=== PATIENT | female | born 1965 | race Hispanic/Latino ===

== ENCOUNTER 2016-08-15 06:14 | Day surgery (SDC) | payer MEDICAID ==
[2016-08-04 11:50] VITALS: BMI 29.8
[2016-08-15 07:03] LABS: ADD MANUAL DIFF? NO
[2016-08-15 07:09] LABS: BASO # 0.02 K/mm3 (0.0-2.0); BASO % 0.2 % (0.0-3.0); EOS # 0.2 (0.0-0.7); EOS % 2.2 % (1.5-5.0); GRAN # 4.88 (1.4-6.5); GRAN % 60.5 % (50.0-68.0); LYMPH # 2.2 (1.2-3.4); LYMPH % 27.7 % (22.0-35.0); MEAN CELL VOLUME 90.3 fL (80.0-105.0); MEAN CORPUSCULAR HGB CONC 35.5 g/dl (31.0-37.0); MEAN PLATELET VOLUME 12.1 fl (7.0-11.0); MONO # 0.8 (0.1-0.6); MONO % 9.4 % (1.0-6.0); PLATELET COUNT 208 10^3/uL (120.0-450.0); RED CELL DISTRIBUTION WIDTH 13.8 % (11.5-14.5); WHITE BLOOD COUNT 8.1 10^3/ul (4.5-11.0)
[2016-08-15] MEDS ORDERED: Lidocaine 2% Inj (20ml) ONE (07:09)
[2016-08-15] MEDS ORDERED: Atropine 0.4 mg/ml Inj (1 mL) ONE (07:10)
[2016-08-15] MEDS ORDERED: Famotidine 20mg/50ml 20 MG/50 ML BAG IVPB ONE (07:11)
[2016-08-15] MEDS ORDERED: Nitroglycerin 50mg in D5W 50 MG/250 ML BOTTLE IV ONE (07:11)
[2016-08-15] MEDS ORDERED: Iohexol 350mgl/ml 50 ML ONE (07:11)
[2016-08-15 07:17] LABS: INR 1.06 (0.93-1.08)
[2016-08-15] MEDS ORDERED: DiphenhydrAMINE 50 mg/ml Inj ONE (07:18)
[2016-08-15 07:23] LABS: BLOOD UREA NITROGEN 15 mg/dL (7-21); CALCIUM 9.7 mg/dL (8.4-10.5); CARBON DIOXIDE 34 mmol/L (21-33); CHLORIDE 96 mmol/L (98-107); CHOLESTEROL 170 mg/dL (130-200); GFR AFRICAN-AMERICAN > 60; GLUCOSE,RANDOM 85 mg/dL (70-110); SODIUM 138 mmol/L (132-148)
[2016-08-15 07:29] LABS: POTASSIUM 2.4 mmol/L (3.6-5.0)
[2016-08-15] MEDS ORDERED: Potassium Chloride 20 mEq ER Tab PO ONE ×4 (07:36→15:59)
[2016-08-15] MEDS ORDERED: Midazolam 2 MG/2 ML VIAL ONE (07:53)
[2016-08-15 07:55] VITALS: O2SAT 97
[2016-08-15] MEDS ORDERED: Eptifibatide 20 mg/10mL Inj IVP ONE (08:15)
[2016-08-15] MEDS ORDERED: Phenylephrine 10 mg/ml Inj ONE (08:15)
[2016-08-15] MEDS ORDERED: Iohexol 350 MG/100 ML VIAL ONE (08:16)
--- NOTE | 2016-08-15 08:28 | HP ---
REFERRING PHYSICIAN: Dr. Corona. REASON FOR ADMISSION: Left heart catheterization, possible angioplasty, persistent exertional an nu. BRIEF CLINICAL HISTORY: This is a 51-year-old female with a past medical history significant for hyp ertension, nonobstructive coronary artery of 50% in 2012. Complained of a persistent heaviness in th e chest on exertion and feels chest pain. The patient active tobacco abuse. PAST MEDICAL HISTORY: Significant for hypertension, coronary artery disease, status post cardiac cat heterization in 2012, 50% RCA. SOCIAL HISTORY: Active tobacco abuse/ 1/2 pack a day. Denies any history of alcohol abuse. CURRENT MEDICATIONS: The patient is taking hydrochlorothiazide, ferrous sulfate, aspirin, oxycodone, amlodipine, , Lexapro and Lipitor. ALLERGIES: ACETAMINOPHEN DIPHENHYDRAMINE, IV CONTRAST, TAZOBACTAM AND ZOSYN PREVIOUS CARDIAC WORKUP FOLLOWS: The patient had a cardiac catheterization 03/12/2012 that reveal ed heavily calcified coronaries, significant bifurcation of LAD and circumflex. LAD free of si gnificant disease, very short left main. LAD shows some luminal irregularity but no flow obstructing stenosis. calcific issues noted of circumflex but no flow obstructing stenosis noted. Calcif ication again noted in proximal RCA of 50% stenosis with no flow obstructing stenosis noted. LV gram shows at that time, ejection fraction 55%, EDP was in the range of 16, the aortic pressure 120/80. LV pressure . Medical treatment recommended. The patient had recent stress test dated 06/16/19 17 that shows essentially ____ normal myocardial perfusion study, no reversible ischemia, ejection fr action 71%. Echocardiography 04/16/2011 showed [id number] mitral regurgitation, [id number] tri cuspid regurgitation, normal left ventricular function, ejection fraction 55%. REVIEW OF SYSTEMS: As per HPI. PHYSICAL EXAMINATION: VITAL SIGNS: Height of the patient is . Weight of the patient is 185 pounds, blood pressure 10 2/94, and heart rate 60. HEENT: PERRLA. Extraocular muscles intact. NECK: Supple. No carotid bruits. No thyromegaly. CHEST: Clear to auscultation. HEART: S1, S2 regular. ABDOMEN: Soft. EXTREMITIES: Clubbing and cyanosis negative. BLOOD WORKUP: Pending. IMPRESSION: Persistent dyspnea on exertion thought to be by referring physician a false abnormal str ess test and was felt to be unstable angina. The patient admitted for elective cardiac cath and poss ible angioplasty. Further recommendation after cardiac catheterization. Will load with 300 Plavix, aspirin, . I discussed with the patient, the patient will proceed for cardiac catheterization a nd follow up the result. Chloe Hicks MD cc:Chloe Corona MD [phone] TT: 08/12/2016 21:21:35 dn
[2016-08-15] MEDS ORDERED: Sodium Chloride 0.9% 1,000 ML IV SCH (09:00)
[2016-08-15 12:10] VITALS: RESP 20; TEMP 98.7
[2016-08-15] MEDS ORDERED: Bacitracin 500 Units/gm Oint Foilpak UD ONE (12:27)
[2016-08-15 13:04] LABS: ADD MANUAL DIFF? NO
[2016-08-15 13:13] LABS: BASO # 0.01 K/mm3 (0.0-2.0); BASO % 0.1 % (0.0-3.0); EOS % 0.1 % (1.5-5.0); GRAN % 88.4 % (50.0-68.0); HEMATOCRIT 42.7 % (36.0-48.0); LYMPH # 0.9 (1.2-3.4); LYMPH % 9.5 % (22.0-35.0); MEAN CELL VOLUME 90.5 fL (80.0-105.0); MEAN CORPUSCULAR HEMOGLOBIN 32.2 pg (25.0-35.0); MEAN CORPUSCULAR HGB CONC 35.6 g/dl (31.0-37.0); MEAN PLATELET VOLUME 12.3 fl (7.0-11.0); MONO # 0.2 (0.1-0.6); MONO % 1.9 % (1.0-6.0); PLATELET COUNT 191 10^3/uL (120.0-450.0); RED CELL DISTRIBUTION WIDTH 13.7 % (11.5-14.5); WHITE BLOOD COUNT 9.1 10^3/ul (4.5-11.0)
[2016-08-15 13:22] LABS: BLOOD UREA NITROGEN 13 mg/dL (7-21); CALCIUM 9.4 mg/dL (8.4-10.5); CARBON DIOXIDE 29 mmol/L (21-33); CHLORIDE 101 mmol/L (98-107); GFR AFRICAN-AMERICAN > 60; GLUCOSE,RANDOM 108 mg/dL (70-110); POTASSIUM 3.1 mmol/L (3.6-5.0); SODIUM 137 mmol/L (132-148)
--- NOTE | 2016-08-15 14:56 | CARD ---
APPROVED REPORT EKG Measurement Heart [id number] HI [id number] [id number] <Conclusion> Normal sinus rhythm Prolonged QT Abnormal ECG
[2016-08-15 15:41] VITALS: BP 139/82; PULSE 84
--- NOTE | 2016-08-15 18:59 | CARD ---
APPROVED REPORT Procedure(s) performed: Left Heart Catheterization PTCA with Stenting of R PDA HISTORY 71%. (EF Method: RADIONUCLIDE), previous diagnostic cath, tobacco history() : The patient is a current smoker , hypertension , dyslipidemia . INDICATION The indication(s) include : positive stress test, dyspnea. CASE TECHNIQUE The patient was brought electively to the Cardiac Catheterization Laboratory in a fasting state and was prepped and draped in a sterile manner. The left wrist was infiltrated with 2% Lidocaine subcutaneous anesthesia. A 6 Fr Glidesheath (Radial) sheath was inserted into the left radial artery without difficulty. Coronary angiography was performed using coronary diagnostic catheters. The left coronary system was accessed and visualized with a Diagnostic ,5 Fr JL 4 catheter. The right coronary system was accessed and visualized with a Diagnostic ,5 Fr JR 4 catheter. The left ventricle was accessed and visualized with a 5 Fr Pigtail 145 (Angled) catheter. Left ventricular/Aortic Valve gradient assessed on pullback. Left ventriculogram was performed in BRAMBILA projection. Closure device was deployed with a Fr TR Band (Regular) without any complications. The patient tolerated the procedure well and there were no complications associated with the procedure. Vessel Analysis The patient's coronary anatomy is right dominant. The left main coronary artery is a large size vessel with intimal irregularities and without significant stenosis. The left main bifurcates to the left anterior descending and circumflex. The left anterior descending artery is a medium size vessel with diffuse calcification noted throughout this vessel and without significant stenosis. The first diagonal branch is a small size vessel with diffuse calcification noted throughout this vessel and without significant stenosis. The circumflex artery is a large size vessel with diffuse calcification noted throughout this vessel and without significant stenosis. The first obtuse marginal branch is a medium size vessel with diffuse calcification noted throughout this vessel and without significant stenosis. The right coronary artery is a medium size vessel with diffuse calcification noted throughout this vessel and without significant stenosis. The right posterior descending artery is a medium size vessel with diffuse calcification noted throughout this vessel and with significant stenosis. There is a 90% stenosis in the proximal segment. Left Ventricle The left ventricle is normal in size with normal contractility. There was no cardiomyopathy. The left ventricular ejection fraction is estimated to be 65%. The left ventricular end diastolic pressure is 15 mmHg. PCI Technique Lesion Anticoagulation was achieved with Heparin. Percutaneous coronary intervention was performed on the right posterior descending artery. The lesion stenosis prior to intervention was 90% with HALIE 2 flow. A 6 Fr JR 3.5 Guide Catheter was used to engage the ostium. BALLOON DILATION A Balloon catheter 2.0 x 10 mm Sprinter RX was inserted and inflated up to 11.00atm for 13seconds. STENT DEPLOYMENT A drug-eluting stent 2.75 x 12 mm Resolute DELVIN was inserted and inflated up to 11.00atm for 13seconds. POST STENT DEPLOYMENT BALLOON DILATION A Balloon catheter 2.75 x 8 mm Trek RX NC was inserted and inflated up to 14.00atm for 18seconds. Final angiography reveals 0 % stenosis with HALIE 3 flow. Conclusion Single Vessel CAD involving R PDA Preserved LV Fx. EF-65%. EDP-15 mmof Hg. Successful PTCA with DELVIN Of R PDA done Recommendations Smoking Cessation Cardiac Rehabilitation ReferralDaily ASA with Plavix for at least one year Aggressive Medical TherapyCardiac Risk Reduction Program Weight Loss Reduction Program CC; Drs. Siegel / Chloe.
[2016-08-16] MEDS ORDERED: Potassium Chloride 20 mEq ER Tab PO SCH (10:00)
== END 2016-08-15 19:19 | disposition home or self-care (01) ==
LOC: CATH 06:14 → 2RSO 08:56 → CATH 19:19
PROVIDERS: ATTEND Internal Medicine Cardiovascular Disease
DX: I25.10 Atherosclerotic heart disease of native coronary artery without angina pectoris (principal); I10 Essential (primary) hypertension; R06.09 Other forms of dyspnea; F17.210 Nicotine dependence, cigarettes, uncomplicated
CPT/HCPCS: 36415; 80048; 80061; 85025; 85175; 85610; 85730; 86850; 86900; 93005; 93458; 99152; C1725 ×2; C1769 ×2; C1874; C1887 ×3; C9600; J1200; J1327; J1644 ×2; J2250; J2930; J3010; J3480; Q9967 ×2

== ENCOUNTER 2016-08-28 15:36 | Emergency (ER) | payer MEDICAID ==
[2016-08-28 16:03] VITALS: BMI 28.2
[2016-08-28 16:11] VITALS: TEMP 99.1; O2SAT 99
[2016-08-28 17:51] VITALS: BP 102/65; PULSE 67; RESP 18
--- NOTE | 2016-08-28 19:08 | US ---
PROCEDURE: Duplex arterial ultrasound of the left wrist HISTORY: Recent cardiac catheterization. Pain and pulsatile mass left wrist. Evaluate for pseudoaneurysm. PHYSICIAN(S): Konrad Yap MD. FINDINGS: The left radial artery is patent. No evidence of large pseudoaneurysm or dissection is seen. There is no evidence of an AV fistula. IMPRESSION: 1. No sonographic evidence for pseudoaneurysm or AV fistula involving the distal left radial artery.
--- NOTE | 2016-08-28 19:28 | ED PDOC ---
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 Patient stated she had a cardiac cath on x 13 days ago. Patient denies pain on this area , cellulitis, or trauma. Denies other complains. (Ayaan Edwards) Past Medical History - Provider Review Nursing Documentation Reviewed: Yes - Past History Past History: Non-Contributing - Infectious Disease Hx of Infectious Diseases: None - Cardiac Hx Hypertension: Yes Hx Pacemaker: No - Pulmonary Hx Respiratory Disorders: No - Neurological Hx Paralysis: No - HEENT Hx HEENT Disorder: No - Renal Hx Renal Disorder: No Hx Kidney Stones: Yes (blasted and stents) - Endocrine/Metabolic Hx Endocrine Disorders: No - Hematological/Oncological Hx Blood Disorders: No Hx Blood Transfusions: No Hx Blood Transfusion Reaction: No - Integumentary Hx Dermatological Disorder: No - Musculoskeletal/Rheumatological Hx Musculoskeletal Disorders: Yes Hx Back Pain: Yes - Gastrointestinal Hx Gastroesophageal Reflux: Yes - Genitourinary/Gynecological Hx Genitourinary Disorders: No - Psychiatric Hx Psychophysiologic Disorder: No Hx Emotional Abuse: No Hx Physical Abuse: No Hx Substance Use: No - Surgical History Hx Appendectomy: Yes (1991) Hx Cardiac Catheterization: Yes Hx Cholecystectomy: Yes (2009) Hx Coronary Stent: Yes ([id number]) Hx Gastric Bypass Surgery: Yes (07/2003) Hx Hysterectomy: Yes Hx Tubal Ligation: Yes Other/Comment: laminectomy/microdiscectomy lower spine05/15. torn right meniscus 05/15. left hand carpal [id number] - Anesthesia Hx Anesthesia: Yes Hx Anesthesia Reactions: No Hx Malignant Hyperthermia: No - Suicidal Assessment Feels Threatened In Home Enviroment: No Family/Social History - Physician Review Nursing Documentation Reviewed: Yes Family/Social History: No Known Family HX Smoking Status: Light Smoker < 10 Cigarettes Daily Hx Alcohol Use: No Hx Substance Use: No Hx Substance Use Treatment: No Allergies/Home Meds Allergies/Adverse Reactions: Allergies acetaminophen [From Tylenol Severe Allergy] Allergy (Severe, Verified 08/04/16 11:50) RASH piperacillin sodium [From Zosyn] Allergy (Severe, Verified 08/04/16 11:50) RASH tazobactam sodium [From Zosyn] Allergy (Severe, Verified 08/04/16 11:50) RASH Iodinated Contrast Media - Oral and Allergy (Verified 08/28/16 16:04) ANAPHYLAXIS IV CONTRAST Allergy (Severe, Uncoded 11/14/14 19:59) ANAPHYLAXIS Home Medications: Home Meds Medication Instructions Recorded Confirmed Pantoprazole Sodium [Protonix IV] 40 mg PO DAILY 02/12/15 08/28/16 Aspirin [Ecotrin] 81 mg PO DAILY 03/13/16 08/28/16 Atorvastatin [Lipitor] 10 mg PO DIN 03/13/16 08/28/16 Escitalopram [Lexapro] 10 mg PO DAILY 03/13/16 08/28/16 Ursodiol [Actigall] 300 mg PO DAILY 03/13/16 08/28/16 amLODIPine [Norvasc] 10 mg PO DAILY 03/13/16 08/28/16 oxyCODONE [oxyCODONE Immediate 15 mg PO PRN PRN 03/13/16 08/28/16 Release Tab] Ferrous Sulfate [Iron] 325 mg PO DAILY 08/04/16 08/28/16 hydroCHLOROthiazide [Hydrodiuril] 25 mg PO DAILY 08/04/16 08/28/16 Clopidogrel [Plavix] 75 mg PO DAILY 08/15/16 08/28/16 Cholecalciferol (Vitamin D3) 1,000 units PO DAILY 08/28/16 08/28/16 [Vitamin D3] Cyanocobalamin (Vitamin B-12) 1 tab PO DAILY 08/28/16 08/28/16 [Vitamin B-12] Desipramine HCl [Norpramin] 10 mg PO HS 08/28/16 08/28/16 Hyoscyamine [Levsin] 0.125 mg PO DAILY PRN 08/28/16 08/28/16 Potassium Chloride [K-Dur 20 mEq 20 meq PO 08/28/16 ER Tab] tiZANidine [Zanaflex] 2 mg PO BID 08/28/16 08/28/16 Review of Systems - Review of Systems Constitutional: Normal. absent: Fatigue, Weight Change, Fevers Eyes: Normal ENT: Normal Respiratory: Normal. absent: SOB, Cough, Sputum, Wheezing Cardiovascular: Normal Gastrointestinal: Normal. absent: Abdominal Pain, Nausea, Vomiting Genitourinary Female: Normal Musculoskeletal: Other (See HPI) Skin: Normal Neurological: Normal Endocrine: Normal Hemo/Lymphatic: Normal Psychiatric: Normal Physical Exam Temperature: Afebrile Blood Pressure: Normal Pulse: Regular Respiratory Rate: Normal Appearance: Positive for: Well-Appearing, Non-Toxic, Comfortable Pain Distress: None Mental Status: Positive for: Alert and Oriented X 3 - Systems Exam Head: Present: Atraumatic, Normocephalic Pupils: Present: PERRL Extroacular Muscles: Present: EOMI Conjunctiva: Present: Normal Mouth: Present: Moist Mucous Membranes Neck: Present: Normal Range of Motion Respiratory/Chest: Present: Clear to Auscultation, Good Air Exchange. No: Respiratory Distress, Accessory Muscle Use Cardiovascular: Present: Regular Rate and Rhythm, Normal S1, S2. No: Murmurs Back: Present: Normal Inspection Upper Extremity: Present: Normal ROM, NORMAL PULSES, Neurovascularly Intact, Capillary Refill < 2s, Other (Small round swelling, approx. 5 mm, over the area of puncture wound. No pulsating, no erythema, no abscess. no tenderness). No : Cyanosis, Edema, Tenderness, Swelling, Erythema, Deformity Lower Extremity: Present: Normal Inspection, NORMAL PULSES, Normal ROM, Neurovascularly Intact, Capillary Refill < 2 s. No: Edema Neurological: Present: GCS=15, CN II-XII Intact, Speech Normal Skin: Present: Warm, Dry, Normal Color. No: Rashes Psychiatric: Present: Alert, Oriented x 3 Vital Signs Temp Pulse Resp BP Pulse Ox 08/28/16 17:10 67 18 102/65 99 08/28/16 16:10 99.1 F 69 14 100/63 99 Medical Decision Making Re-evaluation Time: 19:43 Reassessment Condition: Re-examined, Improved ED Course and Treatment: I was available for consultation during PA evaluation. The chart reviewed by me , and I agree with disposition. The documented history was done by the physician field cane scaler helper. The documented physical exam was done by the physician field cane scaler helper. The documented procedures were done by the physician field cane scaler helper. (Uday Collins) 08/28/16 19:34 Patient is resting comfortably, and is in no acute distress. Patient was instructed to follow up with *physician/clinic* in 1-2 days for further evaluation. 08/28/16 19:43 I spoke with Ara Newspaper Stuffer regarding negative arterial ultrasound. He said to call office for appointment tomorrow. (Ayaan Edwards) - RAD Interpretation Narrative RAD Interpretations (Text): 08/28/16 19:28 Accession No. : [id number] Patient Name / ID : ANEUDY WING / [id number] Exam Date : 08/28/2016 17:47:12 ( Approved ) Study Comment : Sex / Age : F / 51Y Creator : Konrad Bryant MD Dictator : Konrad Bryant MD Photostat Operator Helper : Order Caller : Konrad Bryant MD Approver2 : Report Date : 08/28/2016 19:06:42 My Comment : PROCEDURE: Duplex arterial ultrasound of the left wrist HISTORY: Recent cardiac catheterization. Pain and pulsatile mass left wrist. Evaluate for pseudoaneurysm. PHYSICIAN(S): Konrad Yap MD. FINDINGS: The left radial artery is patent. No evidence of large pseudoaneurysm or dissection is seen. There is no evidence of an AV fistula. IMPRESSION: 1. No sonographic evidence for pseudoaneurysm or AV fistula involving the distal left radial artery. (Ayaan Edwards) Radiology Orders: 08/28/16 16:41 DUPLEX UPPER EXTRM ARTR LEFT [US] Stat Disposition/Present on Arrival - Present on Arrival Any Indicators Present on Arrival: No History of DVT/PE: No History of Uncontrolled Diabetes: No Urinary Catheter: No History of Decub. Ulcer: No History Surgical Site Infection Following: None - Disposition Have Diagnosis and Disposition been Completed?: Yes Disposition Time: 19:45 Patient Plan: Discharge - Disposition Diagnosis: Encounter for wound re-check Disposition: HOME/ ROUTINE Condition: GOOD Discharge Instructions (ExitCare): Heart Catheterization (GEN) Additional Instructions: Call Dr. Hicks doctor office for follow up visit in 1-2 days. return to emergency if symptoms worsen or if puncture wound becomes painful, redness or discharge, or bleeding. Referrals: Shelly Hall DO [Primary Care Provider] - Follow up with primary Chloe Hicks MD [Staff Provider] - Follow up with primary Forms: WORK NOTE
== END 2016-08-28 20:09 | disposition home or self-care (01) ==
LOC: ED 15:36
DX: Z51.89 Encounter for other specified aftercare (principal); I10 Essential (primary) hypertension; F17.210 Nicotine dependence, cigarettes, uncomplicated

== ENCOUNTER 2016-10-12 19:47 | Emergency (ER) | payer MEDICAID ==
[2016-10-12 19:59] VITALS: TEMP 98.3; BMI 29.0
--- NOTE | 2016-10-12 20:32 | ED PDOC ---
Arrival/HPI - General Chief Complaint: Chest Pain Time Seen by Provider: 10/12/16 19:52 Historian: Patient - History of Present Illness Narrative History of Present Illness (Text): 10/12/16 20:10 A 51 year old female whose PMHx includes HTN and CAD, presents to the emergency department with epigastric pain and lateral flank pain b/L. The patient states that the pain feels similar to pains prior to her stent placement. The patient denies nausea, vomiting, diarrhea, vomiting, headache, chills, fevers, or any other complaint. Time/Duration: Prior to Arrival Symptom Onset: Sudden Symptom Course: Unchanged Activities at Onset: Rest, Light Context: Home Past Medical History - Provider Review Nursing Documentation Reviewed: Yes - Past History Past History: Non-Contributing - Infectious Disease Hx of Infectious Diseases: None - Cardiac Hx Cardiac Disorders: Yes Hx Hypertension: Yes Hx Pacemaker: No Other/Comment: stent - Pulmonary Hx Respiratory Disorders: No - Neurological Hx Paralysis: No - HEENT Hx HEENT Disorder: No - Renal Hx Renal Disorder: Yes Hx Kidney Stones: Yes (blasted and stents) - Endocrine/Metabolic Hx Endocrine Disorders: No - Hematological/Oncological Hx Blood Disorders: Yes Hx Anemia: Yes Hx Blood Transfusions: No Hx Blood Transfusion Reaction: No - Integumentary Hx Dermatological Disorder: No - Musculoskeletal/Rheumatological Hx Musculoskeletal Disorders: Yes Hx Back Pain: Yes - Gastrointestinal Hx Gastrointestinal Disorders: Yes Hx Gastroesophageal Reflux: Yes - Genitourinary/Gynecological Hx Genitourinary Disorders: Yes Other/Comment: kidney stones - Psychiatric Hx Psychophysiologic Disorder: No Hx Emotional Abuse: No Hx Physical Abuse: No Hx Substance Use: No - Surgical History Hx Appendectomy: Yes (1991) Hx Cardiac Catheterization: Yes Hx Cholecystectomy: Yes (2009) Hx Coronary Stent: Yes ([id number]) Hx Gastric Bypass Surgery: Yes (07/2003) Hx Hysterectomy: Yes Hx Tubal Ligation: Yes Other/Comment: laminectomy/microdiscectomy lower spine05/15. torn right meniscus 05/15. left hand carpal [id number] - Anesthesia Hx Anesthesia: Yes Hx Anesthesia Reactions: No Hx Malignant Hyperthermia: No - Suicidal Assessment Feels Threatened In Home Enviroment: No Family/Social History - Physician Review Nursing Documentation Reviewed: Yes Family/Social History: No Known Family HX Smoking Status: Light Smoker < 10 Cigarettes Daily Hx Alcohol Use: No Hx Substance Use: No Hx Substance Use Treatment: No Allergies/Home Meds Allergies/Adverse Reactions: Allergies acetaminophen [From Tylenol Severe Allergy] Allergy (Severe, Verified 10/12/16 20:01) RASH piperacillin sodium [From Zosyn] Allergy (Severe, Verified 10/12/16 20:01) RASH tazobactam sodium [From Zosyn] Allergy (Severe, Verified 10/12/16 20:01) RASH Iodinated Contrast- Oral and IV Dye Allergy (Verified 10/12/16 20:01) ANAPHYLAXIS Sulfa (Sulfonamide Antibiotics) Allergy (Verified 10/12/16 20:01) ANGIOEDEMA IV CONTRAST Allergy (Severe, Uncoded 10/12/16 20:01) ANAPHYLAXIS Home Medications: Home Meds Medication Instructions Recorded Confirmed Pantoprazole Sodium [Protonix IV] 40 mg PO DAILY 02/12/15 10/12/16 Aspirin [Ecotrin] 81 mg PO DAILY 03/13/16 10/12/16 Atorvastatin [Lipitor] 10 mg PO DIN 03/13/16 10/12/16 Escitalopram [Lexapro] 10 mg PO DAILY 03/13/16 10/12/16 Ursodiol [Actigall] 300 mg PO DAILY 03/13/16 10/12/16 oxyCODONE [oxyCODONE Immediate 15 mg PO PRN PRN 03/13/16 10/12/16 Release Tab] Ferrous Sulfate [Iron] 325 mg PO DAILY 08/04/16 10/12/16 hydroCHLOROthiazide [Hydrodiuril] 25 mg PO DAILY 08/04/16 10/12/16 Clopidogrel [Plavix] 75 mg PO DAILY 08/15/16 10/12/16 Cholecalciferol (Vitamin D3) 1,000 units PO DAILY 08/28/16 10/12/16 [Vitamin D3] Cyanocobalamin (Vitamin B-12) 1 tab PO DAILY 08/28/16 10/12/16 [Vitamin B-12] Desipramine HCl [Norpramin] 10 mg PO HS 08/28/16 10/12/16 Hyoscyamine [Levsin] 0.125 mg PO DAILY PRN 08/28/16 10/12/16 Potassium Chloride [K-Dur 20 mEq 20 meq PO DAILY 08/28/16 10/12/16 ER Tab] tiZANidine [Zanaflex] 2 mg PO BID 08/28/16 10/12/16 DULoxetine [Cymbalta] 30 mg PO DAILY 10/12/16 10/12/16 Lubiprostone [Amitiza] 24 mcg PO TID 10/12/16 10/12/16 amLODIPine [Norvasc] 10 mg PO DAILY 10/12/16 10/12/16 Review of Systems - Physician Review All systems were reviewed & negative as marked: Yes - Review of Systems Constitutional: Normal. absent: Fevers, Night Sweats Eyes: Normal ENT: Normal Respiratory: Normal Cardiovascular: Chest Pain Gastrointestinal: Abdominal Pain, Constipation. absent: Diarrhea, Nausea, Vomiting Genitourinary Female: Normal Musculoskeletal: Back Pain (flank pain) Skin: Normal Neurological: absent: Headache, Dizziness Endocrine: Normal Hemo/Lymphatic: Normal Psychiatric: Normal Physical Exam Vital Signs Reviewed: Yes Vital Signs Temp Pulse Resp BP Pulse Ox 10/12/16 22:04 62 20 128/73 98 10/12/16 19:59 98.3 F 74 19 136/70 98 Temperature: Afebrile Blood Pressure: Normal Pulse: Regular Respiratory Rate: Normal Appearance: Positive for: Well-Appearing, Non-Toxic, Comfortable Pain Distress: None Mental Status: Positive for: Alert and Oriented X 3 - Systems Exam Head: Present: Atraumatic, Normocephalic Pupils: Present: PERRL Conjunctiva: Present: Normal Mouth: Present: Moist Mucous Membranes Pharnyx: Present: Normal. No: ERYTHEMA, EXUDATE, Uvular Deviation Neck: Present: Normal Range of Motion Respiratory/Chest: Present: Clear to Auscultation, Good Air Exchange. No: Respiratory Distress, Accessory Muscle Use Cardiovascular: Present: Regular Rate and Rhythm, Normal S1, S2. No: Murmurs Abdomen: Present: Normal Bowel Sounds. No: Tenderness, Distention, Peritoneal Signs Back: Present: Normal Inspection Upper Extremity: Present: Normal Inspection. No: Cyanosis, Edema Lower Extremity: Present: Normal Inspection. No: Edema Neurological: Present: GCS=15, CN II-XII Intact, Speech Normal Skin: Present: Warm, Dry, Normal Color. No: Rashes Psychiatric: Present: Alert, Oriented x 3, Normal Insight, Normal Concentration Medical Decision Making ED Course and Treatment: 10/12/16 20:18 Impression: A 51 year old female presents with chest pain and abdominal pain. Differential: ACS vs pancreatitis vs gastritis/GERD vs dissection vs UTI Plan: -- CT Abdomen and Pelvis -- Labs -- Chest X-ray -- Pepcid -- Urinalysis -- Reassess and disposition Progress Notes: 10/12/16 22:49 Reviewed radiology, CT Abdomen and Pelvis shows: Dictated and Authenticated by: Donita Joseph MD Cholecystectomy clips are present. There is intrahepatic duct dilation and common bile ducts dilation likely secondary to cholecystectomy. The spleen and pancreas appear grossly normal on this non-contrast study. There is a 1.8 cm round partially calcified lesion in the lower pole of the right kidney for which followup is recommended. There are several smaller calcifications just inferiorly. Cortical thinning is present in the lower pole of the right kidney. There is asymmetry of the kidneys being more prominent on the left. There is slight fullness of the left renal collecting system without perinephric stranding or obstructing calculi which may be partially due to compensatory hypertrophy Evidence of gastric surgery. Minimal grade 1 spondylolisthesis L4-5. No aortic aneurysm. IMPRESSION: No acute findings. Nonacute findings as above. 10/12/16 23:38 Patient with noted history. EKG is normal; Blood work is unremarkable with negative CE. Urine shows UTI. Given recent stent, patient needs observation on tele for further evaluation and treatment. Also since she is unable to get IV dye, unable to obtain CTA to r/o dissection. Case discussed with Dr. Hicks - plan to place on observation on tele. CT a/p as above with urine showing UTI - possible pyelo - will also need iv antibiotics. Patient however is refusing to stay in the hospital and says she must leave - she understands the risk of leaving, including heart attack, other undiagnosed pathology, sepsis, or - she is leaving against medical advice and says she will follow up with Dr. Hicks and Rafael. She signed the ama sheet. - Lab Interpretations Lab Results: 10/12/16 20:27 10/12/16 20:40 Lab Results 10/12/16 22:02: Urine Color Yellow, Urine Appearance Sl cloudy, Urine pH 6.0, Ur Specific [place] 1.010, Urine Protein Negative, Urine Glucose (UA) Negative, Urine Ketones Negative, Urine Blood Trace-intact H, Urine Nitrate Negative, Urine Bilirubin Negative, Urine Urobilinogen 1.0 H, Ur Leukocyte Esterase Small H, Urine RBC 0 - 2, Urine WBC 5 - 10, Ur Epithelial Cells 6 - 8, Urine Bacteria Many 10/12/16 20:40: Sodium 139, Potassium 3.8, Chloride 101, Carbon Dioxide 29, Anion Gap 13, BUN 11, Creatinine 0.6, Est GFR ( Amer) > 60, Est GFR (Non- Af Amer) > 60, Random Glucose 78, Calcium 9.5, Magnesium 1.8, Total Bilirubin 0.9, Direct Bilirubin 0.6 H, AST 91 H, ALT 58 H, Alkaline Phosphatase 121, Lactate Dehydrogenase 567, Total Creatine Kinase 55, Troponin I < 0.01, Total Protein 7.2, Albumin 3.9, Globulin 3.3, Albumin/Globulin Ratio 1.2, Lipase 146 10/12/16 20:27: PT 10.7, INR 0.99, APTT 23.1 L 10/12/16 20:27: WBC 9.1, RBC 4.48, Hgb 14.4, Hct 41.5, MCV 92.6, MCH 32.1, MCHC 34.7, RDW 14.3, Plt Count 261, MPV 11.4 H, Gran % 68.0, Lymph % (Auto) 24.3, [place] % (Auto) 6.8 H, Eos % (Auto) 0.8 L, Baso % (Auto) 0.1, Gran # 6.17, Lymph # 2.2, [place] # 0.6, Eos # 0.1, Baso # 0.01 I have reviewed the lab results: Yes - RAD Interpretation Radiology Orders: 10/12/16 20:17 CHEST PORTABLE [RAD] Stat 10/12/16 21:34 ABD & PELVIS W/O PO OR IV CONT [CT] Stat [employer] Vendor: Radiologist - EKG Interpretation EKG Interpretation (Text): 10/12/16 23:43 NSR @ 69; no ST/T changes; normal intervals; normal axis. - Medication Orders Current Medication Orders: Discontinued Medications Aspirin (Aspirin Chewable) 162 mg PO STAT STA Stop: 10/12/16 22:09 Last Admin: 10/12/16 22:38 Dose: 162 mg Famotidine (Pepcid) 20 mg IVP STAT STA Stop: 10/12/16 20:19 Last Admin: 10/12/16 21:20 Dose: 20 mg Iohexol (Omnipaque 350 150 Ml) Confirm Administered Dose 150 ml .ROUTE .STK-MED ONE Stop: 10/12/16 21:24 - Scribe Statement The provider has reviewed the documentation as recorded by the Scribe Emmanuelle Kumar Provider Scribe Attestation: All medical record entries made by the Scribe were at my direction and personally dictated by me. I have reviewed the chart and agree that the record accurately reflects my personal performance of the history, physical exam, medical decision making, and the department course for this patient. I have also personally directed, reviewed, and agree with the discharge instructions and disposition. Disposition/Present on Arrival - Present on Arrival Any Indicators Present on Arrival: No History of DVT/PE: No History of Uncontrolled Diabetes: No Urinary Catheter: No History of Decub. Ulcer: No History Surgical Site Infection Following: None - Disposition Have Diagnosis and Disposition been Completed?: Yes Diagnosis: Chest pain, Abdominal pain, Back pain Disposition: AGAINST MEDICAL ADVICE Disposition Time: 23:30 Patient Plan: Other (AGAINST MEDICAL ADVICE) Patient Problems: Current Active Problems Problem Status Onset Abdominal pain Acute Back pain Acute Chest pain Acute Condition: GOOD Discharge Instructions (ExitCare): Chest Pain (ED) Additional Instructions: You are leaving the hospital against medical advice and may return at any time. If you choose not to do so, then follow up with Dr. Hicks and your primary care doctor. Take the antibiotic as prescribed. Drink plenty of fluids. Prescriptions: Nitrofurantoin Macrocrystals [Macrobid] 100 mg PO BID #14 cap Referrals: Shelly Hall DO [Primary Care Provider] - Follow up with primary Chloe Hicks MD [Staff Provider] - Follow up with primary Forms: [employer]™ Audio (Armenian)
[2016-10-12 20:35] LABS: BASO # 0.01 K/mm3 (0.0-2.0); BASO % 0.1 % (0.0-3.0); EOS # 0.1 (0.0-0.7); EOS % 0.8 % (1.5-5.0); GRAN # 6.17 (1.4-6.5); HEMOGLOBIN 14.4 g/dL (12.0-16.0); LYMPH # 2.2 (1.2-3.4); LYMPH % 24.3 % (22.0-35.0); MEAN CELL VOLUME 92.6 fl (80.0-105.0); MEAN CORPUSCULAR HEMOGLOBIN 32.1 pg (25.0-35.0); MEAN CORPUSCULAR HGB CONC 34.7 g/dl (31.0-37.0); MEAN PLATELET VOLUME 11.4 fl (7.0-11.0); MONO # 0.6 (0.1-0.6); MONO % 6.8 % (1.0-6.0); PLATELET COUNT 261 10^3/uL (120.0-450.0); RBC 4.48 10^6/uL (3.5-6.1); RED CELL DISTRIBUTION WIDTH 14.3 % (11.5-14.5); WHITE BLOOD COUNT 9.1 10^3/ul (4.5-11.0)
[2016-10-12 20:47] LABS: INR 0.99 (0.93-1.08); PARTIAL THROMBOPLASTIN TIME 23.1 Seconds (23.7-30.8); PROTHROMBIN TIME 10.7 Seconds (9.9-11.8)
[2016-10-12 21:05] LABS: ALB/GLOB RATIO 1.2 (1.1-1.8); ALBUMIN 3.9 g/dL (3.0-4.8); ALT/SGPT 58 U/L (7-56); AST/SGOT 91 U/L (15-39); BILIRUBIN,DIRECT 0.6 mg/dL (0.0-0.4); BLOOD UREA NITROGEN 11 mg/dL (7-21); CALCIUM 9.5 mg/dL (8.4-10.5); GFR AFRICAN-AMERICAN > 60; GFR NON-AFRICAN AMERICAN > 60; LIPASE 146 U/L (23-300); MAGNESIUM 1.8 mg/dL (1.7-2.2)
[2016-10-12 21:20] LABS: TROPONIN I < 0.01 ng/mL
[2016-10-12 22:10] LABS: URINE BILIRUBIN NEGATIVE (NEGATIVE); URINE BLOOD TRACE-INTACT (NEGATIVE); URINE GLUCOSE (UA) NEGATIVE (NEGATIVE); URINE LEUKOCYTE ESTERASE SMALL Leu/uL (NEGATIVE); URINE NITRATE NEGATIVE (NEGATIVE); URINE PROTEIN NEGATIVE mg/dL (<30 mg/dL)
[2016-10-12 22:18] LABS: URINE APPEARANCE SL CLOUDY (CLEAR); URINE COLOR YELLOW (YELLOW)
[2016-10-12 22:25] LABS: URINE RBC 0 - 2 /hpf (0-2)
[2016-10-12 22:26] LABS: URINE BACTERIA MANY (NEG)
--- NOTE | 2016-10-12 22:40 | CT ---
EXAM: CT Abdomen and Pelvis Without Intravenous Contrast CLINICAL HISTORY: 51 years old, female; Pain; Other: Abdominal and back pain; Additional info: Abd pain, back pain TECHNIQUE: Axial computed tomography images of the abdomen and pelvis without intravenous contrast. This CT exam was performed using one or more of the following dose reduction techniques: automated exposure control, adjustment of the mA and/or kV according to patient size, and/or use of iterative reconstruction technique. Coronal and sagittal reformatted images were created and reviewed. EXAM DATE/TIME: 10/12/2016 9:34 PM COMPARISON: No relevant prior studies available. FINDINGS: Cholecystectomy clips are present. There is intrahepatic duct dilation and common bile ducts dilation likely secondary to cholecystectomy. The spleen and pancreas appear grossly normal on this non-contrast study. There is a 1.8 cm round partially calcified lesion in the lower pole of the right kidney for which followup is recommended. There are several smaller calcifications just inferiorly. Cortical thinning is present in the lower pole of the right kidney. There is asymmetry of the kidneys being more prominent on the left. There is slight fullness of the left renal collecting system without perinephric stranding or obstructing calculi which may be partially due to compensatory hypertrophy. Evidence of gastric surgery. Minimal grade 1 spondylolisthesis L4-5. No aortic aneurysm. IMPRESSION: No acute findings. Nonacute findings as above.
[2016-10-12 23:51] VITALS: BP 138/80; PULSE 66; RESP 18; O2SAT 99
--- NOTE | 2016-10-13 08:24 | RAD ---
HISTORY: cp COMPARISON: 04/24/2015 FINDINGS: LUNGS: No active pulmonary disease. PLEURA: No significant pleural effusion identified, no pneumothorax apparent. CARDIOVASCULAR: Normal. OSSEOUS STRUCTURES: No significant abnormalities. VISUALIZED UPPER ABDOMEN: Normal. OTHER FINDINGS: None. IMPRESSION: No active disease.
--- NOTE | 2016-10-14 01:12 | CARD ---
APPROVED REPORT EKG Measurement Heart [id number] <Conclusion> Normal sinus rhythm Normal ECG
== END 2016-10-12 23:51 | disposition left against medical advice (07) ==
LOC: ED 19:47
DX: R07.9 Chest pain, unspecified (principal); R10.13 Epigastric pain; M54.9 Dorsalgia, unspecified